=== PATIENT | female | born 1950 | race Caucasian/White ===

== ENCOUNTER 2021-07-07 09:47 | Outpatient (CLI) | payer MEDICARE ==
[2021-07-07 11:05] LABS: Bilirubin Neg (Negative); Blood, Urine Negative (Negative); Clarity Clear (Clear); Glucose, Urine (Dipstick) Normal (Negative); Ketone, Urine Negative (Negative); Leukocyte Negative (Negative); Nitrite Negative (Negative); Protein, Urine (Dipstick) Negative (Neg-Trace); Urobilinogen Normal mg/dL (Less than 2)
[2021-07-07 11:09] LABS: #Basophils 0.1 10x3/uL (0.0-0.2); #Eosinphils 0.4 10x3/uL (0.0-0.5); #Monocytes 0.7 10x3/uL (0.0-1.1); #Neutrophils 3.6 10x3/uL (1.5-8.4); %Basophils 0.9 % (0.0-2.0); %Eosinophils 5.1 % (0.0-6.0); %Lymphocytes 36.7 % (18.0-47.0); Hemoglobin 14.1 g/dL (12.0-15.5); Mean Corpuscular HGB CONC 32.9 g/dL (32.0-36.0); Mean Corpuscular Hemoglobin 31.5 pg (27.0-33.0); Mean Corpuscular Volume 95.8 fl (81.6-98.3); Platelet Count 176 10x3/uL (150-450); RBC Distribution Width 12.5 % (11.5-14.5); Red Blood Cell (RBC) Count 4.48 10x6/uL (3.90-5.03); White Blood Cell (WBC) Count 7.4 10x3/uL (3.5-10.5)
[2021-07-07 11:15] LABS: Bacteria/HPF None Seen HPF (None Seen); RBC/HPF 0-3 HPF (0-3); Squamous Epithelial 0-3 HPF (0-3); WBC/HPF 0-3 HPF (0-3)
[2021-07-07 23:33] LABS: SARS-CoV-2 PCR by NAA Not Detected (NotDetected)
== END 2021-07-07 09:48 | disposition home or self-care (01) ==
LOC: LABBT 09:47
PROVIDERS: ATTEND Orthopaedic Surgery Hand Surgery
DX: Z01.818 Encounter for other preprocedural examination (principal); M19.031 Primary osteoarthritis, right wrist; Z20.822 Contact with and (suspected) exposure to COVID-19
CPT/HCPCS: 81001; 85025; 93005; U0003; U0005; 93010

== ENCOUNTER 2021-07-12 07:02 | Day surgery (SDC) | payer MEDICARE ==
[2021-07-11 11:49] VITALS: BMI 25.3
[2021-07-12] MEDS ORDERED: Midazolam HCl 2 mg/2 ml Vial ONE (08:00)
[2021-07-12] MEDS ORDERED: Fentanyl 100 MCG/2 ML VIAL ONE (08:00)
[2021-07-12] MEDS ORDERED: Bupivacaine PF 0.5% 30 ML VIAL ONE (08:25)
[2021-07-12] MEDS ORDERED: Neomycin-Polymyxin 1 ML AMP ONE (08:25)
[2021-07-12] MEDS ORDERED: Bacitracin Zinc Ointment 30 gm TUBE ONE (08:25)
[2021-07-12] MEDS ORDERED: PHENYLEPHRINE-NS 100 MCG/ML 10 ML SYRINGE ONE (08:33)
[2021-07-12] MEDS ORDERED: Ondansetron PF 4 MG/2 ML Vial ONE (08:33)
[2021-07-12] MEDS ORDERED: Ketorolac Tromethamine 30 MG/ML VIAL ONE (08:33)
[2021-07-12] MEDS ORDERED: Ropivacaine 0.5% HCl/PF (150 MG/30 ML VIAL) ONE (08:33)
[2021-07-12] MEDS ORDERED: Dexamethasone 20 MG/5 ML VIAL ONE (08:33)
[2021-07-12] MEDS ORDERED: ePHEDrine 50 MG/ML VIAL ONE (08:33)
[2021-07-12] MEDS ORDERED: PROPOFOL 200 MG/20 ML VIAL ONE (08:33)
[2021-07-12] MEDS ORDERED: Glycopyrrolate 0.2 MG/ML 5 ML SYRINGE ONE (08:33)
== END 2021-07-12 13:00 | disposition home or self-care (01) ==
LOC: SDC 07:02
PROVIDERS: ATTEND Orthopaedic Surgery Hand Surgery
PROC: 0RGN07Z Fusion of Right Wrist Joint with Autologous Tissue Substitute, Open Approach (ICD-10-PCS; principal; 2021-07-12)
PROC: 0RGN0KZ Fusion of Right Wrist Joint with Nonautologous Tissue Substitute, Open Approach (ICD-10-PCS; 2021-07-12)
PROC: 0RGN04Z Fusion of Right Wrist Joint with Internal Fixation Device, Open Approach (ICD-10-PCS; 2021-07-12)
DX: M19.031 Primary osteoarthritis, right wrist (principal); M18.0 Bilateral primary osteoarthritis of first carpometacarpal joints; I10 Essential (primary) hypertension; E78.5 Hyperlipidemia, unspecified; Q60.0 Renal agenesis, unilateral; G25.81 Restless legs syndrome; E03.9 Hypothyroidism, unspecified; E11.9 Type 2 diabetes mellitus without complications; Z79.84 Long term (current) use of oral hypoglycemic drugs; Z79.899 Other long term (current) drug therapy; Z88.5 Allergy status to narcotic agent; Z88.8 Allergy status to other drugs, medicaments and biological substances; Z98.1 Arthrodesis status
CPT/HCPCS: 76000; J0690; J1100; J1885; J2250; J2405; J2704; J2795; J3010; J3490; S0020

== ENCOUNTER 2021-08-25 11:14 | Outpatient (CLI) | payer MEDICARE ==
[2021-08-25 12:03] LABS: #Basophils 0.1 10x3/uL (0.0-0.2); #Eosinphils 0.3 10x3/uL (0.0-0.5); #Monocytes 0.6 10x3/uL (0.0-1.1); #Neutrophils 3.7 10x3/uL (1.5-8.4); %Basophils 0.8 % (0.0-2.0); %Eosinophils 4.1 % (0.0-6.0); %Lymphocytes 34.3 % (18.0-47.0); %Monocytes 8.1 % (0.0-10.0); %Neutrophils 52.4 % (40.0-75.0); Hemoglobin 13.7 g/dL (12.0-15.5); Mean Corpuscular HGB CONC 33.3 g/dL (32.0-36.0); Mean Corpuscular Hemoglobin 31.6 pg (27.0-33.0); Mean Corpuscular Volume 95.2 fl (81.6-98.3); Mean Platelet Volume 10.2 fl (7.4-10.4); Platelet Count 153 10x3/uL (150-450); RBC Distribution Width 12.8 % (11.5-14.5); Red Blood Cell (RBC) Count 4.33 10x6/uL (3.90-5.03); White Blood Cell (WBC) Count 7.1 10x3/uL (3.5-10.5)
[2021-08-25 17:35] LABS: SARS-CoV-2 PCR by NAA Not Detected (NotDetected)
== END 2021-08-25 11:15 | disposition home or self-care (01) ==
LOC: LABBT 11:14
PROVIDERS: ATTEND Orthopaedic Surgery Hand Surgery
DX: Z01.812 Encounter for preprocedural laboratory examination (principal); Z20.822 Contact with and (suspected) exposure to COVID-19
CPT/HCPCS: 85025; U0003; U0005

== ENCOUNTER 2021-08-29 13:05 | Day surgery (SDC) | payer MEDICARE ==
[2021-08-26 12:17] VITALS: BMI 24.9
[2021-08-29] MEDS ORDERED: ceFAZolin 2 GM/DEX 5% 100 ML BAG ONE (14:00)
[2021-08-29] MEDS ORDERED: Fentanyl 100 MCG/2 ML VIAL ONE (16:34)
[2021-08-29] MEDS ORDERED: Bacitracin Zinc Ointment 30 gm TUBE ONE (16:37)
[2021-08-29] MEDS ORDERED: Bupivacaine PF 0.5% 30 ML VIAL ONE (16:37)
[2021-08-29] MEDS ORDERED: Thrombin 5000 UNITS/5 ML VIAL ONE (16:37)
[2021-08-29] MEDS ORDERED: Neomycin-Polymyxin 1 ML AMP ONE (16:37)
[2021-08-29] MEDS ORDERED: PROPOFOL 200 MG/20 ML VIAL ONE (16:49)
[2021-08-29] MEDS ORDERED: Dexamethasone 20 MG/5 ML VIAL ONE (16:49)
[2021-08-29] MEDS ORDERED: ePHEDrine 50 MG/ML VIAL ONE (16:49)
[2021-08-29] MEDS ORDERED: Lidocaine 1% PF 5 ML VIAL ONE (16:49)
[2021-08-29] MEDS ORDERED: Glycopyrrolate 0.2 MG/ML 5 ML SYRINGE ONE (16:49)
[2021-08-29] MEDS ORDERED: Ondansetron PF 4 MG/2 ML Vial ONE (16:49)
[2021-08-29] MEDS ORDERED: Ketorolac Tromethamine 30 MG/ML VIAL ONE (18:08)
== END 2021-08-29 19:30 | disposition home or self-care (01) ==
LOC: SDC 13:05
PROVIDERS: ATTEND Orthopaedic Surgery Hand Surgery
PROC: 0RP Upper Joints, Removal (ICD-10-PCS; principal; 2021-08-29)
DX: T84.84XA Pain due to internal orthopedic prosthetic devices, implants and grafts, initial encounter (principal); G56.02 Carpal tunnel syndrome, left upper limb; M65.849 Other synovitis and tenosynovitis, unspecified hand; M77.8 Other enthesopathies, not elsewhere classified; M18.0 Bilateral primary osteoarthritis of first carpometacarpal joints; M19.031 Primary osteoarthritis, right wrist; E11.9 Type 2 diabetes mellitus without complications; I10 Essential (primary) hypertension; Z79.84 Long term (current) use of oral hypoglycemic drugs; Z79.899 Other long term (current) drug therapy; Z88.5 Allergy status to narcotic agent; Z88.6 Allergy status to analgesic agent; Z88.8 Allergy status to other drugs, medicaments and biological substances; Z98.1 Arthrodesis status
CPT/HCPCS: 76000; J1100; J1885; J2405; J2704; J3010; J3490; S0020

== ENCOUNTER 2022-11-29 09:40 | Outpatient (CLI) | payer MEDICARE ==
[2022-11-29 10:47] LABS: #Basophils 0.1 10x3/uL (0.0-0.2); #Eosinphils 0.3 10x3/uL (0.0-0.5); #Monocytes 0.5 10x3/uL (0.0-1.1); #Neutrophils 2.9 10x3/uL (1.5-8.4); %Basophils 0.8 % (0.0-2.0); %Eosinophils 4.3 % (0.0-6.0); %Lymphocytes 39.1 % (18.0-47.0); %Monocytes 7.9 % (0.0-10.0); %Neutrophils 47.7 % (40.0-75.0); Hemoglobin 13.5 g/dL (12.0-15.5); Mean Corpuscular Hemoglobin 31.6 pg (27.0-33.0); Mean Corpuscular Volume 95.8 fl (81.6-98.3); Mean Platelet Volume 10.1 fl (7.4-10.4); Platelet Count 159 10x3/uL (150-450); Red Blood Cell (RBC) Count 4.27 10x6/uL (3.90-5.03)
[2022-11-29 10:48] LABS: Anion Gap 13 mmol/L (10-20); BUN (Urea Nitrogen) 26 mg/dL (9.8-20.1); Calc. Creatinine Clearance 0 mL/min (70-130); Calcium 9.9 mg/dL (7.8-10.44); Carbon Dioxide 25 mmol/L (23-31); Chloride 110 mmol/L (98-107); Estimated GFR 39; Glucose 97 mg/dL (83-110); Potassium 3.9 mmol/L (3.5-5.1); Sodium 144 mmol/L (136-145)
== END 2022-11-29 09:41 | disposition home or self-care (01) ==
LOC: LABBT 09:40
PROVIDERS: ATTEND Orthopaedic Surgery Hand Surgery
DX: Z01.818 Encounter for other preprocedural examination (principal); S56.414A Strain of extensor muscle, fascia and tendon of left middle finger at forearm level, initial encounter
CPT/HCPCS: 80048; 85025; 93005; 93010

== ENCOUNTER 2022-12-01 08:44 | Day surgery (SDC) | payer MEDICARE ==
[2022-11-29 11:19] VITALS: BMI 25.3
[2022-12-01] MEDS ORDERED: Bacitracin Zinc Ointment 30 gm TUBE ONE (09:27)
[2022-12-01] MEDS ORDERED: Neomycin-Polymyxin 1 ML AMP ONE (09:27)
[2022-12-01] MEDS ORDERED: Bupivacaine PF 0.5% 30 ML VIAL ONE (09:27)
[2022-12-01] MEDS ORDERED: Sodium Chloride 0.9% 100 ML ONE (10:19)
[2022-12-01] MEDS ORDERED: CEFAZOLIN 2 GM VIAL ONE (10:19)
[2022-12-01] MEDS ORDERED: Ondansetron PF 4 MG/2 ML Vial ONE (10:38)
[2022-12-01] MEDS ORDERED: Lidocaine 1% PF 5 ML VIAL ONE (10:38)
[2022-12-01] MEDS ORDERED: PROPOFOL 200 MG/20 ML VIAL ONE (10:38)
[2022-12-01] MEDS ORDERED: ePHEDrine 50 MG/ML VIAL ONE (10:38)
[2022-12-01] MEDS ORDERED: Glycopyrrolate 0.2 MG/ML 5 ML SYRINGE ONE (10:38)
[2022-12-01] MEDS ORDERED: PHENYLEPHRINE-NS 100 MCG/ML 10 ML SYRINGE ONE (10:38)
[2022-12-01] MEDS ORDERED: Ketorolac Tromethamine 30 MG/ML VIAL ONE (11:58)
[2022-12-01] MEDS ORDERED: Labetalol HCl 100 MG/20 ML VIAL ONE (12:17)
[2022-12-01] MEDS ORDERED: hydrALAZINE 20 MG/ML VIAL ONE (12:31)
== END 2022-12-01 13:37 | disposition home or self-care (01) ==
LOC: SDC 08:44
PROVIDERS: ATTEND Orthopaedic Surgery Hand Surgery
PROC: 0LQ80ZZ Repair Left Hand Tendon, Open Approach (ICD-10-PCS; principal; 2022-12-01)
DX: S63.213A Subluxation of metacarpophalangeal joint of left middle finger, initial encounter (principal); S46.111A Strain of muscle, fascia and tendon of long head of biceps, right arm, initial encounter; S43.431A Superior glenoid labrum lesion of right shoulder, initial encounter; R73.03 Prediabetes; I10 Essential (primary) hypertension; Z79.890 Hormone replacement therapy; Z79.899 Other long term (current) drug therapy; Z88.8 Allergy status to other drugs, medicaments and biological substances; Z98.1 Arthrodesis status; X50.0XXA Overexertion from strenuous movement or load, initial encounter; Y92.815 Train as the place of occurrence of the external cause
CPT/HCPCS: 26418; J0360; J1885; J2405; J2704; J3490; S0020

== ENCOUNTER → 2024-09-24 | Outpatient (CLI) | payer MEDICARE | LOC: BICCT 09:29 | PROVIDERS: ATTEND Nurse Practitioner Family | DX: Z12.9 Encounter for screening for malignant neoplasm, site unspecified (principal); R63.4 Abnormal weight loss; Z90.5 Acquired absence of kidney; N28.89 Other specified disorders of kidney and ureter | CPT/HCPCS: 36415; 71270; 74178; 82565 ==

== ENCOUNTER 2024-11-05 11:50 | Outpatient (CLI) | payer MEDICARE | END 2024-11-05 11:51 | disposition home or self-care (01) | LOC: BICMAMMO 11:50 | PROVIDERS: ATTEND Nurse Practitioner Family | DX: Z12.31 Encounter for screening mammogram for malignant neoplasm of breast (principal); Z98.890 Other specified postprocedural states | CPT/HCPCS: 77063; 77067 ==